=== PATIENT | male | born 2000 | race Caucasian/White ===

== ENCOUNTER 2023-03-25 13:05 | Emergency (ER) | payer SELFPAY ==
[~2023-03-25] VITALS: Ht 170.2 cm; Wt 68.0 kg
[2023-03-25] MEDS ORDERED: MULTIPLE VITAMIN 10 ML,THIAMINE HCL 100 MG in DEXTROSE 5% / 0.9% NACL 1,000 ML IV ONE (13:20)
[2023-03-25] MEDS ORDERED: ONDANSETRON HCl 4 MG/2 ML SDV IV ONE (13:20)
[2023-03-25 13:30] VITALS: BP 116/63
[2023-03-25 13:31] LABS: BASO% 0.2 % (0-3); EOS% 1.2 % (0-8); HEMATOCRIT 47.3 % (39.0-50.0); HEMOGLOBIN 15.8 g/dl (14.0-18.0); IMMATURE GRANULOCYTES 0.1 % (0.0-5.0); LYMPH% 23.5 % (15-41); MEAN CELL VOLUME 91.5 fL CALC (80.0-100.0); MEAN CORPUSCULAR HGB 30.6 pG CALC (26.0-32.0); MEAN CORPUSCULAR HGB CONC 33.4 g/dL CAL (32.0-36.0); MONO% 8.3 % (2-13); NEUT# 5.54 thou/uL (1.82-7.42); NEUT% 66.7 % (42-76); RED BLOOD COUNT 5.17 mill/uL (4.70-6.10); RED CELL DISTRI WIDTH 12.3 % (11.5-15.5)
[2023-03-25 13:46] LABS: ALKALINE PHOSPHATASE 77 u/l (38-126); ANION GAP 14 (6-22 (CALC)); BILIRUBIN, TOTAL 0.4 mg/dL (0.2-1.3); BUN 14 mg/dL (9-20); BUN/CREATININE RATIO 13 (12-20 (CALC)); CARBON DIOXIDE 28 mmol/l (22-30); CHLORIDE 107 mmol/l (95-108); CREATININE 1.1 mg/dL (0.7-1.3); ETHYL ALCOHOL 220 mg/dl (0-30); GFR FOR AFR.AMER. > 60 ML/MIN (>=60 (CALC)); GFR OTHER RACES > 60 ML/MIN (>=60 (CALC)); POTASSIUM 4.6 mmol/l (3.5-5.1); SGOT/AST 42 u/l (17-59); SODIUM 144 mmol/l (137-146); TOTAL PROTEIN 7.4 g/dL (6.3-8.2)
[2023-03-25] MEDS ORDERED: ACETAMINOPHEN 500 MG TAB PO ONE (13:55)
[2023-03-25 14:13] VITALS: BP 132/77
[2023-03-25 14:39] VITALS: BP 122/75
[2023-03-25 15:00] VITALS: BP 116/65
[2023-03-25 15:31] VITALS: BP 99/76
[2023-03-25 16:17] VITALS: BP 99/76
== END 2023-03-25 16:30 | disposition home or self-care (01) | DRG 897 ==
LOC: ED 13:05 → EDBD 13:05 → ED 15:26
PROVIDERS: Family Medicine
DX: F10.129 Alcohol abuse with intoxication, unspecified (principal); Y90.7 Blood alcohol level of 200-239 mg/100 ml; F14.90 Cocaine use, unspecified, uncomplicated; Z20.822 Contact with and (suspected) exposure to COVID-19